=== PATIENT | female | born 1950 | race Caucasian/White ===

== ENCOUNTER 2019-03-04 06:15 | Day surgery (SDC) | payer OTHER ==
[2019-03-04] MEDS: TETRACAINE 0.5% UNIT-DOSE OP PRN ×6 (06:40→08:24)
[2019-03-04] MEDS: AK-DILATE 10% OPTH SOL OP PRN ×6 (06:40→06:51)
[2019-03-04] MEDS: CYCLOGYL 2% OPTH OP PRN ×5 (06:40→06:50)
[2019-03-04] MEDS ORDERED: DIAMOX PO STA (06:56)
[2019-03-04] MEDS ORDERED: BETADINE OPTH PREP OP ONE (06:56)
[2019-03-04] MEDS ORDERED: SUBLIMAZE ONE (08:22)
[2019-03-04] MEDS ORDERED: VERSED ONE (08:22)
[2019-03-04] MEDS: LIDOCAINE 1% 20 ML MDV ID STA ×2 (08:25→10:56)
[2019-03-04 09:03] VITALS: BP 128/65; TEMP 97.8
[2019-03-04] MEDS ORDERED: BSS WITH EPINEPHRINE OP ONE (14:17)
--- NOTE | 2019-03-05 09:12 | OP ---
PREOPERATIVE DIAGNOSIS: VISUALLY SIGNIFICANT CATARACT, RIGHT EYE. POSTOPERATIVE DIAGNOSIS: SAME. OPERATION PHACOEMULSIFICATION ASPIRATION OF CATARACT RIGHT EYE. PLACEMENT OF POSTERIOR CHAMBER LENS. PHACO TIME 28.9 SECONDS AT 50% POWER. LENS MODEL NIDHI [id number]. DIOPTER +19.5D. TECHNIQUE: CLEAR CORNEA. ANESTHESIA: TOPICAL ANESTHESIA W/ANESTHESIA MONITORING. OPERATIVE REPORT: Topical anesthesia consisting of Tetracaine was applied to the cornea and Xylocaine Methyl Paraben free of MFP was injected intracamerally into the anterior chamber. The patient was then brought into the operating room , prepped and draped in the usual ophthalmic manner. A lid speculum was placed and the operating microscope was used. A paracentesis was made at the 3 o' clock position. A clear corneal incision was made just out to the limbus. The anterior chamber was entered just inside the clear cornea. Viscoelastic was injected into the anterior chamber. A capsulotomy was performed with a bent # 27 gauge needle. Phacoemulsification was then performed in the posterior chamber. After completion of the phacoemulsification, residual cortical material was aspirated with the irrigation-aspiration system. The posterior capsule was polished. Viscoelastic was injected into the anterior and posterior chambers to inflate the capsular bag. Lens were placed via an Unfolder system and stabilized in the bag. Viscoelastic was removed from the anterior chamber. The wound was checked for any leakage. The four sponges were removed from the fornix. Topical antibiotic steroid and nonsteroidal drops were also applied to the cornea. A Wilson shield was applied. The patient left the operating room in good condition without any complications. INTRAOPERATIVE MEDICATIONS: Xylocaine Methyl Paraben Free MPF MTDD
== END 2019-03-04 09:25 | disposition home or self-care (01) ==
LOC: SURG 06:15
PROVIDERS: ATTEND Ophthalmology
DX: H25.13 Age-related nuclear cataract, bilateral (principal); H25.013 Cortical age-related cataract, bilateral; H35.3131 Nonexudative age-related macular degeneration, bilateral, early dry stage